=== PATIENT | male | born 1950 | race Caucasian/White ===

== ENCOUNTER 2025-11-11 17:00 | Emergency (ER) | payer MEDICARE, OTHER ==
[~2025-11-11] VITALS: Ht 170.2 cm; Wt 83.0 kg
[2025-11-11 17:07] VITALS: TEMP 97.7
[2025-11-11] MEDS ORDERED: HYDROCODONE/APAP 10/325MG TABLET ONE (18:17)
[2025-11-11] MEDS: HYDROCODONE/APAP 10/325MG TABLET PO ONE (18:19)
[2025-11-11 18:21] LABS: PLATELET COUNT (AUTO) 415 K/uL (150-450); RED BLOOD CELL COUNT(AUTO) 4.94 MIL/uL (4.5-6.0); RED CELL DISTRIBUTION WIDTH 15.5 % (11.5-15.0); WHITE BLOOD COUNT (AUTO) 6.3 K/uL (4.3-11.0)
[2025-11-11 18:30] LABS: CALCIUM, SERUM 9.0 mg/dL (8.5-10.1); CREATININE 1.2 mg/dL (0.6-1.3); SODIUM SERUM 144.0 mmol/L (136-145); UREA NITROGEN, BLOOD 15.0 mg/dL (7-18)
[2025-11-11 18:44] LABS: ASPARTATE AMINOTRANSFERASE 13.0 U/L (15-37); NT-PRO BNP 142.0 pg/mL (0-125); TOTAL PROTEIN, SERUM 7.6 g/dL (6.4-8.2)
[2025-11-11 20:00] VITALS: BP 121/69; O2SAT 95
[2025-11-11] MEDS: FUROSEMIDE 40 MG/4 ML VIAL IV ONE (20:13)
[2025-11-11] MEDS ORDERED: FURO-144 PO (20:17)
== END 2025-11-11 21:33 ==
LOC: ER 17:05
DX: R60.0 Localized edema (principal); I99.8 Other disorder of circulatory system; G82.20 Paraplegia, unspecified; E78.5 Hyperlipidemia, unspecified; G89.29 Other chronic pain; I11.9 Hypertensive heart disease without heart failure; J44.9 Chronic obstructive pulmonary disease, unspecified; M19.011 Primary osteoarthritis, right shoulder
CPT/HCPCS: 99285; 93970; 96374; 85025; 85378; 36415; 80053; 86850; 83880; J1938